=== PATIENT | male | born 1995 | race Caucasian/White ===

== ENCOUNTER 2018-02-15 04:29 | Emergency (ER) | payer BC ==
[~2018-02-15] VITALS: Ht 170.2 cm; Wt 73.1 kg
[2018-02-15] MEDS ORDERED: MOTRIN800 MG PO (05:31)
[2018-02-15] MEDS ORDERED: FLEXERIL10 MG PO (05:31)
[2018-02-15 05:58] VITALS: BP 130/80
== END 2018-02-15 05:59 | disposition home or self-care (01) ==
LOC: EME 04:29
DX: S46.312A Strain of muscle, fascia and tendon of triceps, left arm, initial encounter (principal); W01.10XA Fall on same level from slipping, tripping and stumbling with subsequent striking against unspecified object, initial encounter; Y93.39 Activity, other involving climbing, rappelling and jumping off; F17.200 Nicotine dependence, unspecified, uncomplicated
CPT/HCPCS: 73030; 99281; 99283